=== PATIENT | female | born 2000 | race Caucasian/White ===

== ENCOUNTER 2020-12-13 08:28 | Emergency (ER) | payer OTHER ==
[~2020-12-13] VITALS: Ht 157.5 cm; Wt 59.0 kg
[2020-12-13 09:25] LABS: BASO % 0.3 % (0.0-1.0); EOS % 0.3 % (0.0-3.0); HEMATOCRIT 38.4 % (36.0-47.0); HEMOGLOBIN 12.5 g/dl (12.0-15.5); LYMPH # 1.9 10^3/uL (1.5-5.0); LYMPH % 16.3 % (24.0-44.0); MEAN CORPUSCULAR HEMOGLOBIN 27.5 pg (27.0-33.0); MEAN CORPUSCULAR HGB CONC 32.6 g/dl (32.0-36.5); MEAN CORPUSCULAR VOLUME 84.4 fl (80.0-96.0); MONO # 0.5 10^3/uL (0.0-0.8); MONO % 4.5 % (2.0-8.0); NEUTROPHILS # 8.9 10^3/uL (1.5-8.5); NEUTROPHILS % 78.2 % (36.0-66.0); PLATELET COUNT, AUTOMATED 299 10^3/uL (150-450); RED BLOOD COUNT 4.55 10^6/uL (4.00-5.40); WHITE BLOOD COUNT 11.4 10^3/uL (4.0-10.0)
[2020-12-13 09:52] LABS: ALBUMIN 3.7 GM/DL (3.2-5.2); BILIRUBIN,DIRECT 0.1 MG/DL (0.0-0.2); BILIRUBIN,TOTAL 0.3 MG/DL (0.2-1.0); TOTAL PROTEIN 6.7 GM/DL (6.4-8.2)
[2020-12-13] MEDS ORDERED: KETOROLAC 30 MG/ML 1ML VIAL IV ONE (09:55)
[2020-12-13] MEDS ORDERED: NS 1,000 ML IV ONE (09:55)
[2020-12-13] MEDS ORDERED: ONDANSETRON 4MG/2ML VIAL IV ONE (09:55)
--- NOTE | 2020-12-13 10:33 | REP ---
INDICATION: R FLANK PAIN COMPARISON: None. TECHNIQUE: Helical scanning is acquired and 3 mm axial images were reformatted. Coronal and sagittal MPR images were generated and reviewed. FINDINGS: Preliminary digital sports announcer radiograph demonstrates a normal bowel gas pattern. On axial CT images, the lung bases are clear. There is no evidence of pleural effusion or upper abdominal ascites. The liver and the spleen are normal in size homogeneous in texture. Normal adrenal glands are observed bilaterally. No abnormality is noted in the pancreas or the gallbladder on this noncontrast study. Kidneys show no evidence of intrarenal calculus or hydronephrosis on either side. No mass or cyst is observed. No retroperitoneal mass or adenopathy is seen. No uterine or ovarian abnormality is seen. The appendix is mildly prominent in size, 8 mm in transverse dimension. However, there is no evidence of periappendiceal inflammation or fluid. There is no evidence of free air or abnormal fluid collection. Small and large bowel loops are unremarkable in the abdomen and pelvis. No abdominal wall defect is seen. Bone window settings show no bony destructive lesion. IMPRESSION: Mildly prominent size appendix, 8 mm. However, no Alem appendiceal streakiness or inflammation is seen. No fluid or free air. Otherwise negative CT abdomen and pelvis without contrast. No urinary tract calculus or hydronephrosis seen. <Electronically signed by Kee Wheeler > 12/13/20 [id number]
[2020-12-13] MEDS ORDERED: cefTRIAXone SOD 2 GM in D5W MINI-BAG PLUS 50 ML IV ONE (12:00)
[2020-12-13 12:18] LABS: GC DNA AMPLIFICATION NEGATIVE (NEGATIVE)
--- NOTE | 2020-12-13 13:13 | REP ---
INDICATION: RLQ PAIN R/O APPENDICITIS. COMPARISON: Comparison is made with today's CT study.. TECHNIQUE: Right lower quadrant scanning for appendix visualization. FINDINGS: Scanning in the right lower quadrant demonstrates a blind ending 5 mm diameter tubular structure in the right lower quadrant consistent with normal appendix. The appendix is compressible. There was pain with transducer pressure. A trace of free fluid is seen. Peristalsing bowel is noted. No mesenteric inflammatory changes. No adenopathy. No evidence of abscess. IMPRESSION: Normal-sized compressible appendix is visualized with some tenderness to scanning. Trace of fluid. No compelling evidence to suggest appendicitis. <Electronically signed by Kee Wheeler > 12/13/20 [id number]
[2020-12-13] MEDS ORDERED: PROM25TA12 PO (14:09)
[2020-12-13] MEDS ORDERED: CIPR-249 PO (14:09)
[2020-12-13 15:13] VITALS: BP 99/52
[2020-12-15] MEDS ORDERED: MACR100C43 PO (12:31)
== END 2020-12-13 15:30 | disposition home or self-care (01) ==
LOC: M ED 08:28
DX: N10 Acute pyelonephritis (principal); R11.2 Nausea with vomiting, unspecified; R19.7 Diarrhea, unspecified; Z88.6 Allergy status to analgesic agent
CPT/HCPCS: 74176; 76705; 80047; 80076; 81001; 83690; 84702; 85025; 87088; 87186; 87661; 99284; J0696; J1885; J2405